=== PATIENT | male | born 1955 | race Caucasian/White ===

== ENCOUNTER 2017-03-14 14:06 | Emergency (ER) | payer MEDICARE ==
[2017-03-14 15:13] LABS: #Basophils 0.1 thou/uL (0.0-0.2); #Eosinphils 0.2 thou/uL (0.0-0.7); #Lymphocytes 1.8 thou/uL (1.20-3.40); #Monocytes 0.7 thou/uL (0.11-0.59); #Neutrophils 7.1 thou/uL (1.40-6.50); %Basophils 1.2 % (0.0-1.0); %Eosinophils 1.8 % (0.0-10.0); %Lymphocytes 17.9 % (21.0-51.0); %Monocytes 6.9 % (0.0-10.0); %Neutrophils 72.2 % (42.0-75.0); Large Platelets SLIGHT; MDiff Complete? YES; Mean Corpuscular HGB CONC 34.2 g/dL (32.0-36.0); Mean Corpuscular Hemoglobin 33.3 pg (27.0-31.0); Mean Corpuscular Volume 97.3 fl (80.0-94.0); Mean Platelet Volume 11.4 fL (7.4-10.4); Platelet Count 182 thou/uL (130-400); RBC Distribution Width 12.9 % (11.5-14.5); White Blood Cell (WBC) Count 9.9 thou/uL (4.8-10.8)
[2017-03-14 15:14] LABS: Acetaminophen Less than 6.0 mcg/mL (10.0-30.0); Alcohol Less than 10 mg/dL (Less than 10); Salicylate Less than 8.0 mg/dL (15.0-30.0)
[2017-03-14 15:16] LABS: ALT (SGPT) 70 U/L (8-55); AST (SGOT) 62 U/L (5-34); Albumin 4.1 g/dL (3.5-5.0); Alkaline Phosphatase 86 U/L (40-150); Anion Gap 16 mmol/L (10-20); BUN (Urea Nitrogen) 19 mg/dL (8.4-25.7); Bilirubin, Total 0.5 mg/dL (0.2-1.2); Calc. Creatinine Clearance 0 mL/min (70-130); Calcium 9.7 mg/dL (7.8-10.44); Carbon Dioxide 25 mmol/L (22-29); Chloride 101 mmol/L (98-107); Estimated GFR-MDRD 71; Globulin 3.9 g/dL (2.4-3.5); Glucose 200 mg/dL (70-105); Potassium 4.7 mmol/L (3.5-5.1); Sodium 137 mmol/L (136-145)
[2017-03-14 15:22] LABS: INR-International Normal Ratio 2.6; PTT 43.7 SEC (22.9-36.1); Prothrombin Time 28.9 SEC (12.0-14.7)
[2017-03-14 15:33] LABS: Bacteria/HPF None Seen HPF (None Seen); Bilirubin Negative (Negative); Blood, Urine Negative (Negative); Clarity Clear (Clear); Glucose, Urine (Dipstick) 100 mg/dL (Negative); Leukocyte Trace (Negative); Nitrite Negative (Negative); Protein, Urine (Dipstick) Negative (Neg-Trace); RBC/HPF 0-3 HPF (0-3); Specific Gravity, Urine 1.015 (1.005-1.030); Squamous Epithelial 0-3 HPF (0-3); WBC/HPF 0-3 HPF (0-3); pH, Urine 5.5 (5.0-9.0)
[2017-03-14 15:37] LABS: Amphetamine Not Detected (NotDetected); Barbiturates Screen Not Detected (NotDetected); Benzodiazepine Screen Not Detected (NotDetected); Cocaine Metabolite Screen Not Detected (NotDetected); Medtox Control Line Valid? VALID (VALID); Methadone Not Detected (NotDetected); Methamphetamine Not Detected (NotDetected); Opiate Screen Detected (NotDetected); Oxycodone Screen Not Detected (NotDetected); Phencyclidine (PCP) Not Detected (NotDetected); THC/Cannabinoid Screen Not Detected (NotDetected); Tricyclic Screen Not Detected (NotDetected)
--- NOTE | 2017-03-14 15:58 | RAD ---
PORTABLE UPRIGHT FRONTAL CHEST RADIOGRAPH: Date: 03-14-17 Comparison: None. History: Altered mental status. FINDINGS: Extensive post-operative hardware is present at the thoracolumbar junction, incompletely assessed. M idline sternotomy wires are present. Cardiac silhouette is prominent. There is no pneumothorax or pl eural fluid. No focal consolidation or alveolar edema. IMPRESSION: No acute findings. POS: [facility]
[2017-03-14 16:16] LABS: CKMB 0.6 ng/mL (0-6.6); Troponin I Less than 0.010 ng/mL (< 0.028)
[2017-03-14] MEDS ORDERED: Ibuprofen 800 MG TAB ONE (20:24)
== END 2017-03-15 00:08 ==
LOC: MADERS 14:06
DX: F32.9 Major depressive disorder, single episode, unspecified (principal); I10 Essential (primary) hypertension; E11.9 Type 2 diabetes mellitus without complications; Z79.84 Long term (current) use of oral hypoglycemic drugs; Z79.899 Other long term (current) drug therapy
CPT/HCPCS: 36415; 71010; 80053; 80306; 80307; 81003; 81015; 82550; 82553; 84443; 84484; 85025; 85610; 85730; 93005